=== PATIENT | male | born 1990 | race Caucasian/White ===

== ENCOUNTER → 2022-12-20 15:28 | Outpatient (CLI) | payer OTHER, SELFPAY ==
--- NOTE | ~2022-12-20 | CT_ITS ---
EXAMINATION: CT sinus wo con DATE: 12/20/2022 15:38 INDICATION: Deviated nasal septum TECHNIQUE: Computed tomography (CT) of the paranasal sinuses was performed without contrast. Iterativ e reconstruction technique was employed. Exam dose: 282.66 mGy-cm total exam DLP. COMPARISON: None FINDINGS: There is severe leftward nasal septal deviation, nasal septum in contact with the medial wa ll of the left maxillary sinus. Moderately prominent soft tissue swelling of the nasal turbinates, most prominent at the left inferio r nasal turbinate. Left Lindsey cell is noted. The infundibula are patent. The paranasal sinuses and mastoid air cells are normally developed and aerated. IMPRESSION: Severe leftward deviation of nasal septum Left Lindsey cell Reviewed, dictated and finalized at [facility]. Reviewed, dictated and finalized at [facility].
== END ==
PROVIDERS: PCP Family Medicine; Visit Provider Otolaryngology
DX: J34.2 Deviated nasal septum (principal)
CPT/HCPCS: 70486